=== PATIENT | male | born 1980 | race African-American/Black ===

== ENCOUNTER 2017-07-14 15:25 | Emergency (ER) | payer SELFPAY, OTHER | END 2017-07-14 16:36 | disposition home or self-care (01) | LOC: ERS 15:25 | DX: J30.9 Allergic rhinitis, unspecified (principal); L29.8 Other pruritus | CPT/HCPCS: 99283 ==

== ENCOUNTER 2018-02-23 15:04 | Emergency (ER) | payer SELFPAY | END 2018-02-23 16:00 | disposition home or self-care (01) | LOC: ERS 15:04 | DX: J30.2 Other seasonal allergic rhinitis (principal); Z79.899 Other long term (current) drug therapy | CPT/HCPCS: 99282 ==

== ENCOUNTER 2025-07-16 13:14 | Emergency (ER) | payer SELFPAY ==
[2025-07-16] MEDS ORDERED: Ibuprofen 800 MG TAB ONE ×2 (16:07→16:08)
== END 2025-07-16 16:13 | disposition home or self-care (01) ==
LOC: ERS 13:14
DX: S39.012A Strain of muscle, fascia and tendon of lower back, initial encounter (principal); M25.532 Pain in left wrist; V49.9XXA Car occupant (driver) (passenger) injured in unspecified traffic accident, initial encounter; W22.10XA Striking against or struck by unspecified automobile airbag, initial encounter
CPT/HCPCS: 72131